=== PATIENT | female | born 1970 | race Caucasian/White ===

== ENCOUNTER → 2016-06-10 | Outpatient (CLI) | payer BC ==
[2016-06-10 12:30] LABS: BLOOD UREA NITROGEN 12 mg/dl (7-18); BUN/CREATININE RATIO 12.4 (10-20); CALCIUM 8.8 mg/dl (8.5-10.1); CARBON DIOXIDE 25 mmol/L (21-32); CHLORIDE 106 mmol/L (98-107); GLUCOSE 91 mg/dl (70-99); POTASSIUM 3.9 mmol/L (3.5-5.1); SODIUM 141 mmol/L (136-145)
[2016-06-10 12:34] LABS: CHOLESTEROL 183 mg/dl (0-200); CHOLESTEROL/HDL RATIO 2.4; HDL CHOLESTEROL 75 mg/dl; LDL CHOLESTEROL CALCULATED 87 mg/dl; TRIGLYCERIDES 104 mg/dl (0-150); VERY LOW DENSITY LIPOPROT CALC 21 mg/dl
== END | disposition home or self-care (01) ==
LOC: C.LABBFT 07:55
PROVIDERS: ATTEND Nurse Practitioner
DX: K59.09 Other constipation (principal); Z13.220 Encounter for screening for lipoid disorders

== ENCOUNTER → 2017-08-12 | Outpatient (CLI) | payer OTHER ==
[2017-08-12 12:32] LABS: BASO % 0.6 %; BASO ABS # 0.03 K/uL (0-0.2); EOS % 4.3 %; EOS ABS # 0.23 K/uL (0-0.5); HEMATOCRIT 45.1 % (37-47); HEMOGLOBIN 15.2 g/dL (12.0-16.0); IG# 0.01 K/uL (0.00-0.02); LYMPH % 29.2 %; LYMPH ABS # 1.55 K/uL (1.2-3.4); MEAN CORPUSCULAR HEMOGLOBIN 30.3 pg (25-34); MEAN CORPUSCULAR HGB CONC 33.7 g/dl (32-36); MEAN PLATELET VOLUME 8.9 fL (7.4-10.4); MONO % 8.1 %; MONO ABS # 0.43 K/uL (0.11-0.59); NEUT % 57.6 %; NEUT ABS # 3.06 K/uL (1.4-6.5); PLATELET COUNT 274 K/uL (130-400); RED CELL DISTRIBUTION WIDTH CV 12.9 % (11.5-14.5); RED CELL DISTRIBUTION WIDTH SD 41.9 fL (36.4-46.3); WHITE BLOOD COUNT 5.31 K/uL (4.8-10.8)
[2017-08-12 12:56] LABS: ALBUMIN 4.5 gm/dl (3.4-5.0); ALT/SGPT 29 U/L (12-78); AST/SGOT 21 U/L (15-37); BLOOD UREA NITROGEN 19 mg/dl (7-18); CALCIUM 9.4 mg/dl (8.5-10.1); CARBON DIOXIDE 26 mmol/L (21-32); CREATININE 1.05 mg/dl (0.60-1.20); GLUCOSE 97 mg/dl (70-99); POTASSIUM 4.6 mmol/L (3.5-5.1); SODIUM 136 mmol/L (136-145)
[2017-08-12 13:16] LABS: ALKALINE PHOSPHATASE 98 U/L (45-117); TOTAL PROTEIN 8.6 gm/dl (6.4-8.2)
[2017-08-15 14:57] LABS: ANA SCREEN TC 249X POSITIVE (NEGATIVE)
== END | disposition home or self-care (01) ==
LOC: C.LABBFT 09:36
PROVIDERS: ATTEND Physician Assistant Medical
DX: R63.5 Abnormal weight gain (principal)

== ENCOUNTER → 2017-08-19 | Outpatient (CLI) | payer OTHER ==
--- NOTE | 2017-08-19 09:44 | DIAGNOSTIC IMAGING REPORT ---
R HAND MIN 3 VIEWS ROUTINE CLINICAL HISTORY: Bilateral hand and foot pain. EMILY positive. COMPARISON: None FINDINGS: A 5 m sclerotic lesion within the metaphysis of the right radius is benign. No fracture or suspicious lesion is identified. No erosions are identified on this exam. There is minimal osteophytosis within several articulations of the right wrist. Joint spaces appear preserved. A 5 mm cystic focus within the third metacarpal head is noted. IMPRESSION: 1. No acute fracture. 2. No radiographic evidence of an erosive/inflammatory arthropathy. 3. 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 4. 5 mm cystic focus within the right third metacarpal head. This is benign and does not appear to represent an erosion. Electronically signed by: Raleigh Mendoza M.D. 08/19/2017 9:42 AM Dictated Date/Time: 08/19/2017 9:40 AM
--- NOTE | 2017-08-19 09:47 | DIAGNOSTIC IMAGING REPORT ---
L FOOT MIN 3 VIEWS ROUTINE, R FOOT MIN 3 VIEWS ROUTINE HISTORY: 47 years-old Female M25.50, R76.8 bilateral foot pain without reported trauma COMPARISON: None available TECHNIQUE: 3 views of the bilateral feet for a total of 6 images FINDINGS: LEFT: Bipartite medial and lateral hallux sesamoids. Minimal marginal spurring about the first MTP joint. Mild marginal spurring about the dorsal midfoot. No evidence of erosive arthropathy. No acute fracture, or dislocation identified. No opaque foreign body. RIGHT: Bipartite medial hallux sesamoid. Minimal degenerative changes about the interphalangeal joints. No evidence of erosive arthropathy. There is no acute fracture or dislocation identified. No opaque foreign body. IMPRESSION: 1. No acute fracture, dislocation or evidence of erosive arthropathy. 2. Mild degenerative changes as above. The above report was generated using voice recognition software. It may contain grammatical, syntax or spelling errors. Electronically signed by: Melvin Lackey M.D. 08/19/2017 9:46 AM Dictated Date/Time: 08/19/2017 9:41 AM
--- NOTE | 2017-08-19 09:47 | DIAGNOSTIC IMAGING REPORT ---
L HAND MIN 3 VIEWS ROUTINE CLINICAL HISTORY: Bilateral foot and hand pain. EMILY positive COMPARISON: None FINDINGS: Alignment of left hand is anatomic. A ring on the fourth finger is noted. There is mild joint space narrowing with subchondral sclerosis and irregularity of the left first metacarpal head. This does not appear to represent erosions. No acute fracture is present. IMPRESSION: 1. Mild joint space narrowing and subchondral sclerosis and irregularity of the left first metacarpal head which is chronic and may be degenerative or posttraumatic. 2. No radiographic evidence for erosive/inflammatory arthropathy. Electronically signed by: Raleigh Mendoza M.D. 08/19/2017 9:46 AM Dictated Date/Time: 08/19/2017 9:42 AM
[2017-08-19 10:42] LABS: TRANSFERRIN 281 mg/dl (200-360)
== END | disposition home or self-care (01) ==
LOC: C.RAD1850 09:05
PROVIDERS: ATTEND Internal Medicine Rheumatology
DX: M79.641 Pain in right hand (principal); M79.642 Pain in left hand; M25.50 Pain in unspecified joint; R76.8 Other specified abnormal immunological findings in serum; M79.671 Pain in right foot; M79.672 Pain in left foot

== ENCOUNTER → 2017-08-26 | Outpatient (CLI) | payer OTHER ==
--- NOTE | 2017-08-26 08:50 | DIAGNOSTIC IMAGING REPORT ---
CHEST 2 VIEWS ROUTINE CLINICAL HISTORY: Chest pain. Dyspnea on exertion. COMPARISON STUDY: Chest radiograph September or 2014. FINDINGS: Lung volumes are normal. No pneumothorax or pleural effusion is noted. There is no consolidation or evidence for pulmonary edema. Left breast/chest wall surgical clips are noted. Cardiac size is normal. Mediastinal contours are normal. Appearance of the chest is unchanged. IMPRESSION: No acute cardiopulmonary findings. Electronically signed by: Raleigh Mendoza M.D. 08/26/2017 8:49 AM Dictated Date/Time: 08/26/2017 8:48 AM
== END | disposition home or self-care (01) ==
LOC: C.RAD1850 08:28
PROVIDERS: ATTEND Internal Medicine
DX: R06.09 Other forms of dyspnea (principal); R07.9 Chest pain, unspecified

== ENCOUNTER 2020-10-09 06:58 | Inpatient (IN) ==
[2020-10-09] MEDS ORDERED: PANTOprazole 80 MG in DEXTROSE 5% 100 ML IV ONE (07:22)
[2020-10-09] MEDS ORDERED: SODIUM CHLORIDE 0.9% 1000ML 1,000 ML IV SCH (07:30)
--- NOTE | 2020-10-09 07:41 | Emergency Department Note ---
Impression & Plan Upper GI bleed ED Provider Note CHIEF COMPLAINT: Abdominal pain, nausea, black stools HISTORY OF PRESENTING ILLNESS: This is a 50-year-old female who presents to the emergency department by private vehicle with complaint of upper abdominal, nausea and 2 episodes of black stools starting yesterday. She states that her pain is mostly in the upper abdomen and she has been feeling sick to her stomach, she describes the pain as aching and uncomfortable, seems to come in waves, at its worst it is about 8/10, but currently she rates the pain 5/10. She has had associated nausea but has not vomited. She states yesterday she had a bowel movement and it was black and tarry, she had a bowel movement again this morning it was also black and tarry. She denies any bright red blood or melena and she denies any diarrhea. She has had some chills off and on but has not checked her temperature. She has been feeling lightheaded when she stands up from sitting. She has medical history of lupus and is on Plaquenil and Celebrex. She also notes that she has been taking Excedrin fairly often, up to 4 tablets a day, but not every day, to treat headaches. She does have a history of some reflux and takes [id number] omeprazole as needed, but does not take this every day. She did take a dose of omeprazole last night to see if this would help with her symptoms. She denies any chest pain, chest tightness, shortness of breath, palpitations, syncope, back pain, urinary complaints, or u nusual rash. She denies any blood thinner medications. REVIEW OF SYSTEMS: A complete 10 point review of systems was reviewed with the patient with pertinent positives and negatives as per history of present illness. All else were negative. PAST MEDICAL HISTORY: Lupus SOCIAL HISTORY: Lives at home with her , she denies tobacco use ALLERGIES: Reviewed in chart and with the patient PHYSICAL EXAM: CONSTITUTIONAL: Pleasant and cooperative. Nontoxic-appearing and in no acute distress. Mildly dehydrated, but otherwise well appearing and well nourished. HEENT: Normocephalic, atraumatic. PERRL, EOMI, normal conjunctiva. Pharynx normal. Tacky mucous membranes. NECK: Supple, full active range of motion without discomfort. RESPIRATORY: Clear to auscultation bilaterally with no wheezing, crackles, rhonchi or stridor. Equal expansion bilaterally. CARDIOVASCULAR: Regular rate and rhythm with no murmurs, rubs or gallops. Normal peripheral perfusion. No edema. GASTROINTESTINAL: Mildly tender to palpation in the epigastric region, no rebound tenderness or guarding. The abdomen is otherwise nontender, soft and nondistended. No palpable masses or HSM. Bowel sounds present in all quadrants. No CVA tenderness bilaterally. DIGITAL RECTAL EXAM: Visible external hemorrhoids on inspection. No palpable internal hemorrhoids on internal exam. No skin tags appreciated. No active bleeding. A sterile, water-soluble lubricant was applied to the examiner's gloved finger prior to internal exam. No rectal vault tenderness. No rectal masses. No fecal impaction. Stool is black tarry in appearance. Stool Guaiac Test: Hemoccult positive. A nurse checker stocker was present for the entirety of the exam. MUSCULOSKELETAL: Full range of motion of all joints without discomfort. INTEGUMENTARY: No rash or other significant dermatologic conditions noted. NEUROLOGIC: Alert and oriented X 4 with normal affect. Normal strength and sensation in all 4 extremities. Normal speech. Normal gait observed. ED COURSE AND MEDICAL DECISION MAKING: CC: Patient presenting with complaint of abdominal pain, nausea and black stool DIFFERENTIAL DIAGNOSIS: Includes, but not limited to GI bleed, gastritis, peptic ulcer disease, anemia, dehydration, electrolyte abnormality, bowel perforation, mesenteric ischemia, among others. INTERPRETATION OF LABS: No leukocytosis, mild anemia (close to five-point drop from baseline), normal platelets, no significant electrolyte abnormalities, significantly elevated BUN with normal creatinine, normal liver enzymes and lipase. Coagulation factors within normal limits. Troponin undetectable. Lactate mildly elevated, normalized on recheck. EKG: Shows normal sinus rhythm with a rate of 92 bpm, normal intervals no ST elevation or depression, no ectopy, no significant change when compared to previous EKG from 01/15/2015 by my interpretation. MEDICATION RECONCILIATION: I attest that I have personally reviewed the patient's current medication list. INITIAL VITAL SIGNS REVIEW: I reviewed the patient's initial vital signs and interpret them as follows: T: Afebrile; BP: Normotensive; HR: Tachycardic; RR: Within normal limits; Pulse Ox: Within normal limits on room air. MDM SUMMARY: Patient was evaluated at bedside, history and physical exam performed. Patient is alert and oriented, in no acute distress, resting calmly in the stretcher. She is afebrile and nontoxic-appearing. She is noted to be tachycardic on initial triage vital signs, this is improved now that the patient is resting in the stretcher. Cardiac monitoring: An order was placed for continuous cardiac monitoring. The monitor shows a rate of 93 bpm with normal sinus rhythm. EKG reviewed at bedside, noting normal sinus rhythm with no acute ischemic changes. Mild tenderness to palpation in the epigastric region, but no acute abdomen. She complains of nausea but is not actively vomiting. Rectal exam was performed as above, black tarry stool was noted and was Hemoccu lt positive. Orders were placed for labs, IV fluid bolus for hydration, IV Protonix bolus 80 mg and drip were ordered, acute abdominal x-ray series. The patient was offered something for pain and nausea, she declines anything at this time. Patient discussed with Dr. Callahan, who agrees with my assessment, plan, and disposition. Labs and imaging reviewed as above, labs are notable for mild anemia which is a significant drop from her baseline, platelets are normal. Lactate was slightly elevated, but normalized on recheck after a liter of fluids. Abdominal x-ray was negative for any signs of bowel obstruction or free air. Patient reassessed multiple times throughout ED stay, she has remained hemodynamically stable and afebrile, and reports her pain and nausea have remained well controlled. The patient and her were updated on all results and plan for admission, they verbalized understanding and were agreeable to this plan. I spoke on the phone with Dr. Moreira, [facility] Hospitalist, who agrees to evaluate the patient for the admission. Patient was stable at time of admission. The chart was completed utilizing [employer] Speech voice recognition software. Grammatical errors, random word insertions, pronoun errors, and incomplete sentences are an occasional consequence of this system due to software limitations, ambient noise, and hardware issues. Any formal questions or concerns about the content, text, or information contained within the body of this dictation should be directly addressed to the nurse practitioner for clarification. Past Med/Surg History Medical History (Updated 10/09/20 @ 16:28 by AKI Taylor) Elevated lactic acid level Lupus Melena Upper GI bleed Social History Smoking Status: Never smoker Hx Alcohol Use: No Hx Substance Use: No Preferred Language: Faroese Supervisor Production Managing Required: No Beliefs That Will Affect Care: None Current Living Situation: Spouse Other Information That Helps Us Care for You: No Feels Safe at Home: Yes Safety Concerns: Feels Safe At This Time Assistive Devices: None Allergies Allergies Allergy/AdvReac Type Severity Reaction Status Date / Time Iodinated Contrast Media Allergy Intermediate RAPID Verified 10/09/20 08:55 HEART RATE Penicillins Allergy Unknown Verified 10/09/20 08:55 Home Meds Home Medications Medication Instructions Recorded Confirmed celecoxib 200 mg PO DAILY 10/09/20 10/09/20 cholecalciferol (vitamin D3) 125 mcg PO DAILY 10/09/20 10/09/20 hydroxychloroquine 200 mg PO DAILY 10/09/20 10/09/20 Results & Data (ED) Vital Signs Vital Signs - 24 hr 10/09/20 07:00 10/09/20 07:30 10/09/20 08:00 Temperature 36.6 C Temperature Source Oral Pulse Rate 137 H 88 89 Pulse Rhythm Regular Pulse Strength Normal Respiratory Rate 22 17 17 Respiratory Effort / Characteristics Non-Labored Spontaneous Respiratory Depth Normal Respiratory Pattern Regular Blood Pressure 102/76 108/81 112/76 Blood Pressure Mean 84 90 88 Blood Pressure Position Sitting Pulse Oximetry 100 98 98 Oxygen Delivery Method Room Air Sepsis Recent Fever Within 48 Hours No Sepsis New/Unexplained Change in Mental Status No Sepsis Action Taken by Nursing No Action Required 10/09/20 09:12 10/09/20 09:30 Temperature Temperature Source Pulse Rate 97 H 92 H Pulse Rhythm Pulse Strength Respiratory Rate 23 22 Respiratory Effort / Characteristics Respiratory Depth Respiratory Pattern Blood Pressure 124/81 111/73 Blood Pressure Mean 95 85 Blood Pressure Position Pulse Oximetry 96 98 Oxygen Delivery Method Sepsis Recent Fever Within 48 Hours Sepsis New/Unexplained Change in Mental Status Sepsis Action Taken by Nursing Laboratory Data Result diagrams: 10/09/20 07:43 10/09/20 07:43 Lab Results 10/09/20 10/09/20 10/09/20 Range/Units 07:43 07:43 07:43 WBC 6.79 (4.8-10.8) K/uL RBC 3.38 L (4.2-5.4) M/uL Hgb 10.1 L (12.0-16.0) g/dL Hct 30.2 L (37-47) % MCV 89.3 (80-100) fL MCH 29.9 (25-34) pg MCHC 33.4 (32-36) g/dL RDW Std Deviation 41.5 (36.4-46.3) fL RDW Coeff of Nohelia 12.9 (11.5-14.5) % Plt Count 276 (130-400) K/uL MPV 8.8 (7.4-10.4) fL Immature Gran % (Auto) 0.1 % Neut % (Auto) 75.5 % Lymph % (Auto) 18.9 % [place] % (Auto) 5.3 % Eos % (Auto) 0.1 % Baso % (Auto) 0.1 % Neut # (Auto) 5.12 (1.4-6.5) K/uL Lymph # (Auto) 1.28 (1.2-3.4) K/uL [place] # (Auto) 0.36 (0.11-0.59) K/uL Eos # (Auto) 0.01 (0-0.5) K/uL Baso # (Auto) 0.01 (0-0.2) K/uL Immature Gran # (Auto) 0.01 (0.00-0.02) K/uL PT 10.6 (9.0-12.0) Seconds INR 1.0 (0.9-1.1) APTT 22.4 (21.0-31.0) Seconds PTT Ratio 0.9 Sodium (136-145) mmol/L Potassium (3.5-5.1) mmol/L Chloride (98-107) mmol/L Carbon Dioxide (21-32) mmol/L Anion Gap (3-11) BUN (7-18) mg/dl Creatinine (0.6-1.2) mg/dl Est Cr Clr Drug Dosing ml/min Est GFR ( Amer) ml/min Est GFR (Non-Af Amer) ml/min BUN/Creatinine Ratio (10-20) Glucose (70-99) mg/dl Lactate (0.4-2.0) mmol/L Calcium (8.5-10.1) mg/dl Total Bilirubin (0.2-1) mg/dl AST (15-37) U/L ALT (12-78) U/L Alkaline Phosphatase (45-117) U/L Troponin I (0-0.045) ng/ml Total Protein (6.4-8.2) gm/dl Albumin (3.4-5.0) gm/dl Globulin (2.5-4.0) gm/dl Albumin/Globulin Ratio (0.9-2) Lipase (73-393) U/L COVID-19 Eval Order SARS-CoV-2 (PCR) (Negative) Blood Type O Positive Antibody Screen NEGATIVE 10/09/20 10/09/20 10/09/20 Range/Units 07:43 07:43 09:52 WBC (4.8-10.8) K/uL RBC (4.2-5.4) M/uL Hgb (12.0-16.0) g/dL Hct (37-47) % MCV (80-100) fL MCH (25-34) pg MCHC (32-36) g/dL RDW Std Deviation (36.4-46.3) fL RDW Coeff of Nohelia (11.5-14.5) % Plt Count (130-400) K/uL MPV (7.4-10.4) fL Immature Gran % (Auto) % Neut % (Auto) % Lymph % (Auto) % [place] % (Auto) % Eos % (Auto) % Baso % (Auto) % Neut # (Auto) (1.4-6.5) K/uL Lymph # (Auto) (1.2-3.4) K/uL [place] # (Auto) (0.11-0.59) K/uL Eos # (Auto) (0-0.5) K/uL Baso # (Auto) (0-0.2) K/uL Immature Gran # (Auto) (0.00-0.02) K/uL PT (9.0-12.0) Seconds INR (0.9-1.1) APTT (21.0-31.0) Seconds PTT Ratio Sodium 140 (136-145) mmol/L Potassium 4.0 (3.5-5.1) mmol/L Chloride 110 H (98-107) mmol/L Carbon Dioxide 22 (21-32) mmol/L Anion Gap 8.0 (3-11) BUN 40 H (7-18) mg/dl Creatinine 0.74 (0.6-1.2) mg/dl Est Cr Clr Drug Dosing 73.6 ml/min Est GFR ( Amer) 108.0 ml/min Est GFR (Non-Af Amer) 93.1 ml/min BUN/Creatinine Ratio 53.8 H (10-20) Glucose 117 H (70-99) mg/dl Lactate 2.4 H* (0.4-2.0) mmol/L Calcium 8.6 (8.5-10.1) mg/dl Total Bilirubin 0.7 (0.2-1) mg/dl AST 13 L (15-37) U/L ALT 25 (12-78) U/L Alkaline Phosphatase 63 (45-117) U/L Troponin I < 0.015 (0-0.045) ng/ml Total Protein 6.7 (6.4-8.2) gm/dl Albumin 3.8 (3.4-5.0) gm/dl Globulin 2.9 (2.5-4.0) gm/dl Albumin/Globulin Ratio 1.3 (0.9-2) Lipase 118 (73-393) U/L COVID-19 Eval Order Covid19 at [facility] SARS-CoV-2 (PCR) (Negative) Blood Type Antibody Screen 10/09/20 Range/Units 09:52 WBC (4.8-10.8) K/uL RBC (4.2-5.4) M/uL Hgb (12.0-16.0) g/dL Hct (37-47) % MCV (80-100) fL MCH (25-34) pg MCHC (32-36) g/dL RDW Std Deviation (36.4-46.3) fL RDW Coeff of Nohelia (11.5-14.5) % Plt Count (130-400) K/uL MPV (7.4-10.4) fL Immature Gran % (Auto) % Neut % (Auto) % Lymph % (Auto) % [place] % (Auto) % Eos % (Auto) % Baso % (Auto) % Neut # (Auto) (1.4-6.5) K/uL Lymph # (Auto) (1.2-3.4) K/uL [place] # (Auto) (0.11-0.59) K/uL Eos # (Auto) (0-0.5) K/uL Baso # (Auto) (0-0.2) K/uL Immature Gran # (Auto) (0.00-0.02) K/uL PT (9.0-12.0) Seconds INR (0.9-1.1) APTT (21.0-31.0) Seconds PTT Ratio Sodium (136-145) mmol/L Potassium (3.5-5.1) mmol/L Chloride (98-107) mmol/L Carbon Dioxide (21-32) mmol/L Anion Gap (3-11) BUN (7-18) mg/dl Creatinine (0.6-1.2) mg/dl Est Cr Clr Drug Dosing ml/min Est GFR ( Amer) ml/min Est GFR (Non-Af Amer) ml/min BUN/Creatinine Ratio (10-20) Glucose (70-99) mg/dl Lactate (0.4-2.0) mmol/L Calcium (8.5-10.1) mg/dl Total Bilirubin (0.2-1) mg/dl AST (15-37) U/L ALT (12-78) U/L Alkaline Phosphatase (45-117) U/L Troponin I (0-0.045) ng/ml Total Protein (6.4-8.2) gm/dl Albumin (3.4-5.0) gm/dl Globulin (2.5-4.0) gm/dl Albumin/Globulin Ratio (0.9-2) Lipase (73-393) U/L COVID-19 Eval Order SARS-CoV-2 (PCR) NEGATIVE (Negative) Blood Type Antibody Screen Administered Medications Pantoprazole Sodium 40 mg/ (Dextrose) 100 mls @ 20 mls/hr IV Q5H REPLACED BY [facility] Stop: 11/08/20 08:59 Last Infusion: 10/09/20 14:18 Dose: 0 mg/hr, 0 mls/hr Documented by: [id number] Admin: 10/09/20 09:09 Dose: 8 mg/hr, 20 mls/hr Documented by: [id number] Sodium Chloride (Nss 1000ml) 1,000 mls @ 125 mls/hr IV .Q8H LAURO Stop: 10/10/20 04:38 Last Admin: 10/09/20 13:20 Dose: 125 mls/hr Documented by: [id number] Scopolamine (Scopolamine 1 Mg Tdsy) 1 mg TD Q72H LAURO Stop: 11/08/20 12:38 Last Admin: 10/09/20 13:49 Dose: 1 mg Documented by: [id number] Discontinued Medications Sodium Chloride (Nss 1000ml) 1,000 mls @ 999 mls/hr IV .Q1H1M LAURO Stop: 10/09/20 08:30 Last Infusion: 10/09/20 09:03 Dose: 0 mls/hr Documented by: [id number] Admin: 10/09/20 07:54 Dose: 999 mls/hr Documented by: [id number] Pantoprazole Sodium 80 mg/ (Dextrose) 100 mls @ 400 mls/hr IV NOW ONE Stop: 10/09/20 07:36 Last Infusion: 10/09/20 09:03 Dose: 0 mls/hr Documented by: [id number] Admin: 10/09/20 07:54 Dose: 400 mls/hr Documented by: [id number] Metoclopramide HCl (Metoclopramide Hcl Inj 5 Mg/Ml 2 Ml Vial) 10 mg IV NOW STA Stop: 10/09/20 12:18 Last Admin: 10/09/20 13:20 Dose: 10 mg Documented by: [id number] Imaging Data Radiologist's Impression: Chest/Abdomen X-ray 10/09/20 07:22 CHEST AND ABDOMEN 2 VIEWS HISTORY: epigastric pain, GI Bleed COMPARISON: Chest 08/26/2017. KUB 09/20/2015. FINDINGS: No pneumothorax. No pleural effusions. The heart is normal in size. The lungs are clear. Surgical clips again noted within the left breast. Prior cholecystectomy. No pneumoperitoneum. No pneumatosis. No renal or ureteral calculi. No dilated loops of bowel to suggest an obstruction. IMPRESSION: No acute cardiopulmonary process. No evidence for bowel obstruction. ACT 112: Negative or not required by law. Electronically signed by: Carl Stoll M.D. 10/09/2020 8:36 AM Discharge Plan Visit Data Chief Complaint: Abdominal Pain Stated Complaint: ABD PAIN ED Provider: Mariya Callahan ED Midlevel Provider: Era Velasco Discharge Problem: Upper GI bleed Patient Disposition: Admitted As Inpatient Discharge Instructions Interventions: ED Discharge Assessment Last Done: 10/09/20 12:03
[2020-10-09 07:54] LABS: Basophils # (auto) 0.01 K/uL (0-0.2); Basophils % (auto) 0.1 %; Eosinophils # (auto) 0.01 K/uL (0-0.5); Eosinophils % (auto) 0.1 %; Hematocrit (blood only) 30.2 % (37-47); Hemoglobin 10.1 g/dL (12.0-16.0); Immature Granulocytes # (auto) 0.01 K/uL (0.00-0.02); Immature Granulocytes % (auto) 0.1 %; Lymphocytes # (auto) 1.28 K/uL (1.2-3.4); Lymphocytes % (auto) 18.9 %; Mean Corpuscular Hemoglobin 29.9 pg (25-34); Mean Corpuscular Hgb Conc 33.4 g/dL (32-36); Mean Corpuscular Volume 89.3 fL (80-100); Mean Platelet Volume 8.8 fL (7.4-10.4); Monocytes # (auto) 0.36 K/uL (0.11-0.59); Monocytes % (auto) 5.3 %; Neutrophils # (auto) 5.12 K/uL (1.4-6.5); Neutrophils % (auto) 75.5 %; Platelet Count 276 K/uL (130-400); RDW Coefficient of Variation 12.9 % (11.5-14.5); RDW Standard Deviation 41.5 fL (36.4-46.3); Red Blood Count 3.38 M/uL (4.2-5.4); White Blood Count 6.79 K/uL (4.8-10.8)
[2020-10-09 08:04] LABS: Partial Thromboplastin Ratio 0.9; Partial Thromboplastin Time 22.4 Seconds (21.0-31.0); Prothrombin Time 10.6 Seconds (9.0-12.0)
[2020-10-09 08:11] LABS: Alanine Aminotransferase 25 U/L (12-78); Albumin Level 3.8 gm/dl (3.4-5.0); Aspartate Aminotransferase 13 U/L (15-37); BUN Creatinine Ratio 53.8 (10-20); Blood Urea Nitrogen 40 mg/dl (7-18); Calcium 8.6 mg/dl (8.5-10.1); Carbon Dioxide 22 mmol/L (21-32); Chloride 110 mmol/L (98-107); Creatinine Clr Calc Pharmacy 73.6 ml/min; Est GFR (Non-African American) 93.1 ml/min; Glucose 117 mg/dl (70-99); Lipase 118 U/L (73-393); Sodium 140 mmol/L (136-145)
[2020-10-09 08:16] LABS: Albumin Globulin Ratio 1.3 (0.9-2); Alkaline Phosphatase 63 U/L (45-117); Bilirubin,Total 0.7 mg/dl (0.2-1); Globulin 2.9 gm/dl (2.5-4.0); Total Protein 6.7 gm/dl (6.4-8.2); Troponin I < 0.015 ng/ml (0-0.045)
--- NOTE | 2020-10-09 08:37 | XRay Report ---
CHEST AND ABDOMEN 2 VIEWS HISTORY: epigastric pain, GI Bleed COMPARISON: Chest 08/26/2017. KUB 09/20/2015. FINDINGS: No pneumothorax. No pleural effusions. The heart is normal in size. The lungs are clear. Santizo rgical clips again noted within the left breast. Prior cholecystectomy. No pneumoperitoneum. No pneum atosis. No renal or ureteral calculi. No dilated loops of bowel to suggest an obstruction. IMPRESSION: No acute cardiopulmonary process. No evidence for bowel obstruction. ACT 112: Negative or not required by law. Electronically signed by: Carl Stoll M.D. 10/09/2020 8:36 AM
[2020-10-09] MEDS: PANTOprazole 40 MG in DEXTROSE 5% 100 ML IV SCH ×2 (09:09→16:41)
--- NOTE | 2020-10-09 09:44 | History & Physical Report ---
Date of Service October 09, 2020 Assessment & Plan (1) Upper GI bleed: Pt presents after increased nsaids use, with nausea and melena and 4 gm decrease in her hgb, will be on bolus protonix, EGD performed only showing gastritis and duodenitis, will change to po protonix 40 bid start (2) Elevated lactic acid level: likely from hyoperfusion did recieve crystaliod resusitation in er and will recheck continuing ivf (3) Lupus: typically on celebrex and plaquenil these will be on hold (4) DVT prophylaxis: chemoprophylaxis is contraindicated (5) Vertigo: will try transderm scop has reproducible sx on exam no nystagmus History of Present Illness Primary Care Provider: Randy Elliott MD 50-year-old female who presents to the emergency department with complaint of upper abdominal, nausea and 2 episodes of black stools starting yesterday. She states that her pain is mostly in the upper abdomen and she has been feeling sick to her stomach, she describes the pain as aching and uncomfortable, seems to come in waves, at its worst it is about 8/10, but currently she rates the pain 5/10. She has had associated nausea but has not vomited. She states yesterday she had a bowel movement and it was black and tarry, she had a bowel movement again this morning it was also black and tarry. She denies any bright red blood or melena and she denies any diarrhea. She has had some chills off and on but has not checked her temperature. She has been feeling lightheaded when she stands up from sitting. She has medical history of lupus and is on Plaquenil and Celebrex. She also notes that she has been taking Excedrin fairly often, up to 4 tablets a day, but not every day, to treat headaches. She does have a history of some reflux and takes [id number] omeprazole as needed, but does not take this every day. She did take a dose of omeprazole last night to see if this would help with her symptoms. She denies any chest pain, chest tightness, shortness of breath, palpitations, syncope[] Allergies Allergy/AdvReac Type Severity Reaction Status Date / Time Iodinated Contrast Media Allergy Intermediate RAPID Verified 10/09/20 08:55 HEART RATE Penicillins Allergy Unknown Verified 10/09/20 08:55 Home Medications Medication Instructions Recorded Confirmed Type celecoxib 200 mg PO DAILY 10/09/20 10/09/20 History cholecalciferol (vitamin D3) 125 mcg PO DAILY 10/09/20 10/09/20 History hydroxychloroquine 200 mg PO DAILY 10/09/20 10/09/20 History Past Med/Surg History Medical History (Updated 10/09/20 @ 16:28 by AKI Taylor) Elevated lactic acid level Lupus Melena Upper GI bleed Social History Smoking Status: Never smoker Hx Alcohol Use: No Hx Substance Use: No Preferred Language: Sinhala Statistician Applied Required: No Beliefs That Will Affect Care: None Current Living Situation: Spouse Other Information That Helps Us Care for You: No Feels Safe at Home: Yes Safety Concerns: Feels Safe At This Time Assistive Devices: None Review of Systems Review of Systems: Mild distress and fatigue no headache, no visual changes no speech or swallowing issues no chest pain, pressure or palpitations no shortness of breath, cough or wheezes no abdominal pain, nausea or vomiting, melena no dysuria, hematuria or frequency no focal joint pain or swelling no back pain, CVA tenderness or radicular pain no bruising, bleeding or rashes no focal signs of weakness or numbness or altered sensation no complaints of anxiety or depression.. Physical Exam Physical Exam: The patient appeared well nourished and normally developed. Vital signs as documented. Head exam is normocephalic atraumatic significantly pale conjunctiva Neck is without JVD, thyromegaly, or carotid bruits. Lungs are clear to auscultation, no focal loss of breath sounds Cardiac exam, Rhythm is regular.. No murmurs, rubs or gallops. Abdominal exam reveals epigastric and right upper quadrant tenderness Extremities are nonedematous and both pedal pulses are present Neurologic exam is alert and oriented, no focal loss of strength or sensation Skin is without bruises or rashes Psychologically is without concerns for anxiety or depression Results & Data Results & Data ([facility]) Vital Signs (Past 12 Hours) Vital Signs Temp Pulse Resp BP Pulse Ox 10/09/20 08:00 89 17 112/76 98 10/09/20 07:30 88 17 108/81 98 10/09/20 07:00 97.9 F 137 H 22 102/76 100 Chest/Abdomen X-ray 10/09/20 07:22 CHEST AND ABDOMEN 2 VIEWS HISTORY: epigastric pain, GI Bleed COMPARISON: Chest 08/26/2017. KUB 09/20/2015. FINDINGS: No pneumothorax. No pleural effusions. The heart is normal in size. The lungs are clear. Surgical clips again noted within the left breast. Prior cholecystectomy. No pneumoperitoneum. No pneumatosis. No renal or ureteral calculi. No dilated loops of bowel to suggest an obstruction. IMPRESSION: No acute cardiopulmonary process. No evidence for bowel obstruction. Electronically signed by: Carl Stoll M.D. 10/09/2020 8:36 AM ECG is abnormal but this is similar to old PG Care Time/CCT Total # of Minutes Spent Total Time Spent with Patient: Total time spent is greater than 50% in coordination of care (as documented) at patient's floor/unit and/or counseling patient: Coding Level of Care Code 63354 Initial Inpt Care Lvl 2 Diagnoses Upper GI bleed K92.2 Elevated lactic acid level R79.89 Lupus M32.9 DVT prophylaxis Z29.9 Vertigo R42
[2020-10-09] MEDS ORDERED: METOCLOPRAMIDE HCL INJ 5 MG/ML 2 ML VIAL IV STA (12:17)
--- NOTE | 2020-10-09 12:25 | Gastrointestinal Consultation ---
Date of Consultation October 09, 2020 Assessment & Plan (1) Melena: Concern for upper GI bleed given melena and NSAID use. -Continue IV Pantoprazole gtt for now -Keep NPO for EGD today -Will give IV Reglan 10 mg once now -Continue to monitor H/H -Further recommendations pending results of testing Thank you for allowing us to participate in the care of this patient. If you should have any further questions or concerns, do not hesitate to contact us at extension [phone] or [phone]. Supervising Physician Co-Signing Physician Notes Agree with JODI Frausto as above Abd: Soft, NT, ND, +BS Continue current therapy and supportive care Proceed with EGD now. History of Present Illness Reason for Consultation: Melena Requesting Physician: Dr. Moreira History of Present Illness Patient is a 50 yo female with lupus who presents to [facility] ED with epigastric pain, nausea, dizzines, and 2 episodes of melena. The melena occurred on 10/08/20. She notes that she has been feeling sick, but has tried to ignore her symptoms. They had been intermittent and fluctuating in severity. Yesterday she experienced black, tarry stool, then felt weak. She reports a history of GERD and takes occasional PPI therapy. She took an Omeprazole last night along with Excedrin. She takes Plaquenil and Celebrex on a daily basis due to her history of Lupus. H/H 10.1/30.2. No hematemesis. Her last EGD was in [address] Mahoney of [facility]. She was noted to have gastric erosions at that time. She is presently on IV Pantoprazole. Allergies Allergy/AdvReac Type Severity Reaction Status Date / Time Iodinated Contrast Media Allergy Intermediate RAPID Verified 10/09/20 08:55 HEART RATE Penicillins Allergy Unknown Verified 10/09/20 08:55 Home Medications Medication Instructions Recorded Confirmed Type celecoxib 200 mg PO DAILY 10/09/20 10/09/20 History cholecalciferol (vitamin D3) 125 mcg PO DAILY 10/09/20 10/09/20 History hydroxychloroquine 200 mg PO DAILY 10/09/20 10/09/20 History Patient History Medical History (Updated 10/09/20 @ 13:05 by Vazquez Kam MD) Elevated lactic acid level Lupus Melena Upper GI bleed Social History Smoking Status: Never smoker Hx Alcohol Use: No Hx Substance Use: No Preferred Language: Hebrew Paster Supervisor Required: No Beliefs That Will Affect Care: None Current Living Situation: Spouse Other Information That Helps Us Care for You: No Feels Safe at Home: Yes Safety Concerns: Feels Safe At This Time Assistive Devices: None Review of Systems Constitutional: no fever and no chills Respiratory: no cough and no dyspnea Cardiovascular: no chest pain Gastrointestinal: + abdominal pain, + nausea and + melena; no hematemesis and no diarrhea/loose stools Physical Exam Constitutional: well developed Respiratory: normal respiratory effort Cardiovascular: Extremities: no edema Gastrointestinal (Abdomen): normal bowel sounds, soft, nontender, no hepatosplenomegaly Musculoskeletal: Head/Neck/Chest: normocephalic Psychiatric: A+Ox3, euthymic affect Results & Data ([facility]) Vital Signs (Past 12 Hours) Vital Signs Temp Pulse Resp BP Pulse Ox 10/09/20 12:03 85 18 98 10/09/20 12:01 85 18 98 10/09/20 12:00 87 20 104/67 97 10/09/20 11:50 86 14 98 10/09/20 11:40 83 17 97 10/09/20 11:31 100 H 21 97 10/09/20 11:30 89 18 106/74 96 10/09/20 11:20 88 19 97 10/09/20 11:16 101 H 18 107/75 98 10/09/20 10:20 87 17 10/09/20 10:10 102 H 23 10/09/20 10:00 96 H 22 114/75 99 10/09/20 09:30 92 H 22 111/73 98 10/09/20 09:12 97 H 23 124/81 96 10/09/20 08:00 89 17 112/76 98 10/09/20 07:30 88 17 108/81 98 10/09/20 07:00 36.6 C 137 H 22 102/76 100 PG Care Time/CCT Total # of Minutes Spent Total Time Spent with Patient: Total time spent is greater than 50% in coordination of care (as documented) at patient's floor/unit and/or counseling patient: Coding Level of Care Code 50969 Inpt Consult Level 4 Diagnoses Melena K92.1
[2020-10-09] MEDS ORDERED: ONDANSETRON INJ 2 MG/ML 2 ML VIAL IV PRN (12:39)
[2020-10-09] MEDS ORDERED: MoRPHine SULFATE 2 MG/ML CARP IV PRN (12:39)
[2020-10-09] MEDS ORDERED: SCOPOLAMINE 1 MG TDSY TD SCH (13:00)
--- NOTE | 2020-10-09 13:02 | Anesthesiology Consultation ---
Date of Service October 09, 2020 Assessment & Plan (1) Encounter for pre-operative examination: Chart Review Chart Review: Acceptable Risk for Surgery, Patient NOT seen in Pre Admission Testing and entry specialist initiated Consults Requested none ASA ASA3 Proposed Anesthesia Anesthesia Type: MAC Risk / Benefits Reviewed With: PT / POA / Parent / Guardian, Accepts Plan and Informed Consent Obtained History Surgery Operation Date: 10/09/20 17:00 Proposed Procedures p Esophagogastroduodenoscopy Dr Alvarez - Brett Knight Case, DO Height/Weight Height: 5 ft 3 in Weight: 55.9 kg Allergies Allergy/AdvReac Type Severity Reaction Status Date / Time Iodinated Contrast Media Allergy Intermediate RAPID Verified 10/09/20 08:55 HEART RATE Penicillins Allergy Unknown Verified 10/09/20 08:55 Medications Home Medications Medication Instructions Recorded Confirmed Last Taken celecoxib 200 mg PO DAILY 10/09/20 10/09/20 Unknown cholecalciferol (vitamin D3) 125 mcg PO DAILY 10/09/20 10/09/20 Unknown hydroxychloroquine 200 mg PO DAILY 10/09/20 10/09/20 Unknown Active Medications Generic Name Dose Route Start Last Admin Trade Name Freq PRN Reason Stop Dose Admin Pantoprazole Sodium 40 mg/ 100 mls @ 20 mls/hr 10/09/20 09:00 10/09/20 09:09 Dextrose IV 11/08/20 08:59 8 mg/hr Q5H LAURO 20 mls/hr Administration 8 MG/HR Past Medical History Medical History Lupus Social History Smoking Status: Never smoker Physical Exam Vital Signs Last Vital Signs Temp 36.6 C 10/09/20 07:00 Pulse 85 10/09/20 12:03 Resp 18 10/09/20 12:03 BP 104/67 10/09/20 12:00 Pulse Ox 98 10/09/20 12:03 Testing Laboratory Results 10/09/20 07:43 10/09/20 07:43 PT 10.6 Seconds (9.0-12.0) 10/09/20 07:43 INR 1.0 (0.9-1.1) 10/09/20 07:43 APTT 22.4 Seconds (21.0-31.0) 10/09/20 07:43 Blood Type O Positive 10/09/20 07:43 Antibody Screen NEGATIVE 10/09/20 07:43 Electrocardiogram Date: 10/09/2009-Oct-2020 07:11:33 [facility] ROUTINE RETRIEVAL Normal sinus rhythm Septal infarct , age undetermined ST & T wave abnormality, consider anterior ischemia Abnormal ECG When compared with ECG of 15-JAN-2015 18:47, Septal infarct is now Present Nonspecific T wave abnormality, worse in Lateral leads Chest X-Ray Date: 10/09/20 CHEST AND ABDOMEN 2 VIEWS HISTORY: epigastric pain, GI Bleed COMPARISON: Chest 08/26/2017. KUB 09/20/2015. FINDINGS: No pneumothorax. No pleural effusions. The heart is normal in size. The lungs are clear. Surgical clips again noted within the left breast. Prior cholecystectomy. No pneumoperitoneum. No pneumatosis. No renal or ureteral calculi. No dilated loops of bowel to suggest an obstruction. IMPRESSION: No acute cardiopulmonary process. No evidence for bowel obstruction.
[2020-10-09] MEDS: SODIUM CHLORIDE 0.9% 1000ML 1,000 ML IV SCH (13:20)
--- NOTE | 2020-10-09 15:12 | Electrocardiogram Report ---
Test Reason : Blood Pressure : / mmHG Vent. Rate : 092 BPM Atrial Rate : 092 BPM P-R Int : 112 ms QRS Dur : 076 ms QT Int : 354 ms P-R-T Axes : 027 047 -58 degrees QTc Int : 437 ms Normal sinus rhythm Nonspecific ST abnormality Abnormal ECG When compared with ECG of 15-JAN-2015 18:47, Nonspecific T wave abnormality, worse in Lateral leads Confirmed by Deondre Henriquez ([id number]) on 10/09/2020 3:12:10 PM Referred By: REFERRED SELF Confirmed By:Randy Henriquez
[2020-10-09] MEDS ORDERED: LIDOCAINE 2% 2 ML VIAL/AMP(20MG/ML) INFIL ONE (15:40)
[2020-10-09] MEDS ORDERED: PROPOFOL IV EMULSION 10 MG/ML 20 ML VIAL IV ONE (15:40)
--- NOTE | 2020-10-09 15:47 | GI REPORT ---
Patient Name: Dalia Goetz Procedure Date: 10/09/2020 3:08 PM Date of : 1970 Admit Type: Inpatient Age: 50 Gender: Female Attending MD: Brett Alvarez DO Procedure: Upper GI endoscopy Providers: Brett Alvarez DO Referring MD: Jason Moreira Indications: Acute post hemorrhagic anemia, Melena Medicines: Monitored Anesthesia Care Complications: No immediate complications. Estimated Blood Loss: Estimated blood loss: none. Procedure: Pre-Anesthesia Assessment: - Prior to the procedure, a History and Physical was performed, and patient medications and allergies were reviewed. The patient's tolerance of previous anesthesia was also reviewed. The risks and benefits of the procedure and the sedation options and risks were discussed with the patient. All questions were answered, and informed consent was obtained. Prior Anticoagulants: The patient has taken no previous anticoagulant or antiplatelet agents. ASA Grade Assessment: III - A patient with severe systemic disease. After reviewing the risks and benefits, the patient was deemed in satisfactory condition to undergo the procedure. After obtaining informed consent, the endoscope was passed under direct vision. Throughout the procedure, the patient's blood pressure, pulse, and oxygen saturations were monitored continuously. The Endoscope was introduced through the mouth, and advanced to the second part of duodenum. The upper GI endoscopy was accomplished without difficulty. The patient tolerated the procedure well. Findings: The esophagus was normal. A small hiatal hernia was present. Localized moderate inflammation characterized by erosions was found in the gastric antrum. Biopsies were taken with a cold forceps for histology. Localized moderate inflammation characterized by erosions and erythema was found in the duodenal bulb. Impression: - Normal esophagus. - Small hiatal hernia. - Gastritis. Biopsied. - Duodenitis. Recommendation: - [facility] patient to [facility] for [facility] care. - Advance diet as tolerated. - Continue present medications. - Use Protonix (pantoprazole) 40 mg PO BID. - Return to primary care physician as previously scheduled. Brett Alvarez DO 10/09/2020 3:47:17 PM This report has been signed electronically. Note Initiated On: 10/09/2020 3:08 PM Number of Addenda: 0 I attest to the content of the Intraoperative Record and orders documented therein, exceptions below {[id number]}
--- NOTE | 2020-10-09 15:51 | Anesthesiology Progress Note ---
Date of Service October 09, 2020 Anesthesia Post Procedure Vital Signs Vital Signs: Temp Pulse Pulse Resp BP BP Pulse Ox 10/09/20 14:50 36.7 C 109 H 16 136/88 99 10/09/20 12:59 36.7 C 96 H 111/74 98 10/09/20 12:03 85 18 98 10/09/20 12:01 85 18 98 10/09/20 12:00 87 20 104/67 97 10/09/20 11:50 86 14 98 10/09/20 11:40 83 17 97 10/09/20 11:31 100 H 21 97 10/09/20 11:30 89 18 106/74 96 10/09/20 11:20 88 19 97 10/09/20 11:16 101 H 18 107/75 98 10/09/20 10:20 87 17 10/09/20 10:10 102 H 23 10/09/20 10:00 96 H 22 114/75 99 10/09/20 09:30 92 H 22 111/73 98 10/09/20 09:12 97 H 23 124/81 96 10/09/20 08:00 89 17 112/76 98 10/09/20 07:30 88 17 108/81 98 10/09/20 07:00 36.6 C 137 H 22 102/76 100 Transfer of Care Handoff Completed per policy Notes Mental Status: alert / awake / arousable and participated in evaluation Patient Amnestic to Procedure: Yes Nausea / Vomiting: adequately controlled Pain: adequately controlled Airway Patency, RR, SpO2: stable & adequate BP & HR: stable & adequate Hydration State: stable & adequate Anesthetic Complications: no major complications apparent and Pt Satisfied with anesthetic care
[2020-10-09] MEDS: CHECK SCOPOLAMINE PATCH PLACEMENT SCH (16:43)
[2020-10-09] MEDS: PANTOprazole 40 MG TAB PO SCH (21:19)
[2020-10-10] MEDS: CHECK SCOPOLAMINE PATCH PLACEMENT SCH ×2 (00:04→08:22)
[2020-10-10] MEDS: SODIUM CHLORIDE 0.9% 1000ML 1,000 ML IV SCH (00:05)
[2020-10-10] MEDS: PANTOprazole 40 MG TAB PO SCH (08:22)
--- NOTE | 2020-10-10 10:57 | Gastroenterology Progress Note ---
Date of Service October 10, 2020 Assessment & Plan (1) Duodenal erosion: (2) Gastric erosions: (3) Upper GI bleed: -Continue Pantoprazole 40 mg BID -Continue to monitor H/H -Would abstain from NSAIDs -Supportive care per primary team Thank you for allowing us to participate in the care of this patient. If you should have any further questions or concerns, do not hesitate to contact us at extension [phone] or [phone]. Admission and Anticipated Discharge Date Admission Date: October 09, 2020 Supervising Physician Co-Signing Physician Notes Agree with JODI Frausto as above Patient was discharged prior to my evaluation. Subjective Patient is a 50 yo female with anemia & melena. Nausea and vomiting has resolved. She underwent an EGD on 10/09/20 that indicated gastric & duodenal erosions. Patient is on Pantoprazole IV 40 mg BID at present. She denies further GI symptoms at present. H?H this AM was noted to be 8.4/30.2. Last colonoscopy within the past 1 year. Review of Systems Constitutional: no fever and no chills Respiratory: no cough and no dyspnea Cardiovascular: no chest pain Gastrointestinal: no abdominal pain, no nausea, no vomiting and no melena Physical Exam Constitutional: well developed Respiratory: normal respiratory effort Gastrointestinal (Abdomen): normal bowel sounds, soft, nontender, no hepatosplenomegaly Musculoskeletal: Head/Neck/Chest: normocephalic Results & Data Results & Data ([facility]) Vital Signs (Past 12 Hours) Vital Signs Temp Pulse Pulse Resp BP Pulse Ox 10/10/20 08:24 93 H 10/10/20 08:16 36.5 C 84 16 104/67 98 10/09/20 23:16 84 10/09/20 23:01 36.8 C 89 18 86/58 L 99 PG Care Time/CCT Total # of Minutes Spent Total Time Spent with Patient: Total time spent is greater than 50% in coordination of care (as documented) at patient's floor/unit and/or counseling patient: Coding Level of Care Code 39812 Subseq Hosp Care Lvl 3 Diagnoses Duodenal erosion K26.9 Gastric erosions K25.9 Upper GI bleed K92.2
--- NOTE | 2020-10-10 16:59 | Electrocardiogram Report ---
Test Reason : Blood Pressure : / mmHG Vent. Rate : 074 BPM Atrial Rate : 074 BPM P-R Int : 106 ms QRS Dur : 080 ms QT Int : 378 ms P-R-T Axes : 010 065 -35 degrees QTc Int : 419 ms Sinus rhythm T wave abnormality, consider anterior ischemia Nonspecific ST abnormality Abnormal ECG Confirmed by Deondre Henriquez ([id number]) on 10/10/2020 4:58:44 PM Referred By: REFERRED SELF Confirmed By:Randy Henriquez
--- NOTE | 2020-10-10 19:11 | Discharge Summary ---
Date of Service October 10, 2020 Admission HPI Per Admitting Provider 50-year-old female who presents to the emergency department with complaint of upper abdominal, nausea and 2 episodes of black stools starting yesterday. She states that her pain is mostly in the upper abdomen and she has been feeling sick to her stomach, she describes the pain as aching and uncomfortable, seems to come in waves, at its worst it is about 8/10, but currently she rates the pain 5/10. She has had associated nausea but has not vomited. She states yesterday she had a bowel movement and it was black and tarry, she had a bowel movement again this morning it was also black and tarry. She denies any bright red blood or melena and she denies any diarrhea. She has had some chills off and on but has not checked her temperature. She has been feeling lightheaded when she stands up from sitting. She has medical history of lupus and is on Plaquenil and Celebrex. She also notes that she has been taking Excedrin fairly often, up to 4 tablets a day, but not every day, to treat headaches. She does have a history of some reflux and takes goiv-bhu-jpxixea omeprazole as needed, but does not take this every day. She did take a dose of omeprazole last night to see if this would help with her symptoms. She denies any chest pain, chest tightness, shortness of breath, palpitations, syncope[] Principal Diagnosis acute blood loss anemia, gastritis and duodenitis, from nsaids Discharge Exam The patient appeared well Vital signs as documented. Lungs are clear to auscultation and appear unlabored Cardiac exam, Rhythm is regular.. No murmurs, rubs or gallops. Abdominal exam reveals normal bowel sounds, soft non tender, no masses Extremities are nonedematous and both pedal pulses are normal. Neurologic exam is alert and oriented, no focal loss of strength or sensation Skin is without bruises or rashes Psychologically is without concerns for anxiety or depression. Discharge Data Allergies Allergy/AdvReac Type Severity Reaction Status Date / Time Iodinated Contrast Media Allergy Intermediate RAPID Verified 10/09/20 08:55 HEART RATE Penicillins Allergy Unknown Verified 10/09/20 08:55 Consultations 10/09/20 09:15 ED Decision to Admit Stat 10/09/20 12:39 Consult Gastroenterology Routine Procedures Performed Operation Date: 10/09/20 17:00 Actual Procedures p EGD Biopsy Cytology - Brett Antonia Case, DO Hospital Course (1) Upper GI bleed: Pt presents after increased nsaids use, with nausea and melena and 4 gm decrease in her hgb, will be on bolus protonix, EGD performed only showing gastritis and duodenitis, po protonix 40 bid for 6 weeks Patient still some tachycardia from volume loss anemia she is recommended to take vitamins or vitamin containing iron she is given off work through 14 October to return on the (2) Elevated lactic acid level: likely from hypoperfusion did receive crystalloid resuscitation in er (3) Lupus: typically on celebrex and plaquenil these will be on hold (4) Vertigo: will try transderm scop has reproducible sx on exam no nystagmus Total Time Total Time Spent Total Time Spent (In Minutes): It required greater than 30 minutes to prepare this patient for discharge Discharge Plan Discharge Items Patient Disposition: Home - Self-Care Reason For Visit: UGI,ACUTE SYMPTOMATIC BLOOD LOSS,ANEMIA Discharge Diagnosis: gi bleed from non steroidal medication acute blood loss anemia gastritis and duodenitis Activity: Resume your previous activity Non-emergency contact: Primary Care Provider Call non-emergency contact if: your symptoms worsen and you have a fever Follow-up/Referrals: Randy Elliott III, MD [Primary Care Provider] - 10/15/20 9:30 am (Your appointment is with the physician assistant womens volleyball coach, Cari Waller. If you have any questions or need to change this appointment, please call [phone].) Diet: Regular Addtl Attending Provider Instructions: Avoid medications that contain things like aspirin ibuprofen or naproxen. At least take 1 week off of your Celebrex but if you can take longer that would be beneficial. For pain you can use things like Tylenol. Avoid were eliminate acidic foods such as citrus and tomato-based for at least 4 to 6 weeks Avoid or eliminate alcohol or caffeine products. At least keep servings to less than 2 a day Take your medicines faithfully to help heal your stomach You can benefit from having an iron supplement or multiple vitamin with iron. (even a vitamin) Be aware this may cause constipation if such increase your fiber or take a mild cdet-mvf-vinpeld laxative because you have had a high heart rate when moving around I will give you off work thru tuesday for you to have more time to recover Pending Studies at Discharge: No Stand-Alone Forms: [facility]School Release, Smoking Cessation Medications and DC Order Prescriptions: New pantoprazole 40 mg Tablet,Delayed Release (Dr/Ec) 40 mg PO BID Qty: 90 RF: 0 Continued hydroxychloroquine 200 mg tablet 200 mg PO DAILY RF: 0 cholecalciferol (vitamin D3) 125 mcg (5,000 unit) Tablet 125 mcg PO DAILY RF: 0 Discontinued celecoxib 200 mg capsule 200 mg PO DAILY RF: 0 Discharge Orders: Discharge Order (Routine); Ordered 10/10/20 Ordered By: Jason Moreira Admission Data Admit Date/Time: 10/09/20 09:53 Attending Provider: Jason Moreira Admit Provider: Jason Moreira Primary Care Provider: Randy Elliott III Other Providers: Jason Moreira ; Brett Alvarez Other Interventions: Discharge Summary Assessment (RN) Last Done: 10/10/20 13:16 Coding Level of Care Code D/C Day Management >30 mins Diagnoses Upper GI bleed K92.2 Elevated lactic acid level R79.89 Lupus M32.9 Vertigo R42
== END 2020-10-10 13:42 | disposition home or self-care (01) | DRG 378 ==
LOC: ED 06:58 → 2N 09:53 → 2W 10-10 00:15